=== PATIENT | male | born 2000 | race Hispanic/Latino ===

== ENCOUNTER 2024-09-21 16:39 | Emergency (ER) | payer SELFPAY ==
[~2024-09-21] VITALS: Ht 172.7 cm; Wt 90.7 kg
[2024-09-21 17:08] LABS: BASOPHILS # (AUTO) 0.06 K/uL (0.00-0.20); BASOPHILS % (AUTO) 0.8 % (0.0-5.0); EOSINOPHILS # (AUTO) 0.03 K/uL (0.00-0.70); EOSINOPHILS % (AUTO) 0.4 % (0.0-8.0); HEMATOCRIT 43.8 % (42-54); IMMATURE GRANULOCYTE ABSOLUTE 0.15 K/uL (0-1); LYMPHOCYTES # (AUTO) 1.2 K/uL (1.0-4.8); LYMPHOCYTES % (AUTO) 15.6 % (21.0-51.0); MEAN CORPUSCULAR HEMOGLOBIN 28.9 pg (27.0-33.0); MEAN CORPUSCULAR VOLUME 84.9 fL (79-99); MONOCYTES # (AUTO) 0.5 K/uL (0.1-1.0); MONOCYTES % (AUTO) 6.3 % (3.0-13.0); NEUTROPHILS # (AUTO) 5.6 K/uL (1.8-7.7); NEUTROPHILS % (AUTO) 74.9 % (40.0-77.0); PLATELET COUNT (AUTO) 192 K/uL (130-400); RED BLOOD CELL COUNT(AUTO) 5.16 MIL/uL (4.50-6.20); RED CELL DISTRIBUTION WIDTH 12.6 % (11.0-15.5); WHITE BLOOD COUNT (AUTO) 7.4 K/uL (4.8-10.8)
--- NOTE | 2024-09-21 17:08 | ERN ---
ED Note History of Present Illness Stated Complaint: COUGH, N/V ONSET TODAY Chief Complaint: Cough Time Seen by MD: 16:40 Dictation: Patient is a 84-year-old male came to the ED with a chief complaint of cough , chills , fevers this morning. Patient denies nausea, vomiting, shortness of breath, chest pain, burning micturition. Patient has nonproductive cough, patient did not take any medication this morning for fevers Allergies: Coded Allergies: No Known Allergies (Unverified Allergy, Unknown, 09/21/24) Home Meds Active Scripts Amoxicillin/Potassium Clav (Amox Tr-K Clv 875-125 mg Tab) 875 Mg-125 Mg Tablet, 1 TAB PO BID for 8 Days, #16 TAB 0 Refills Prov:VIKASH LOVELACE MD 09/21/24 Loratadine (Loratadine) 10 Mg Tablet, 1 TAB PO DAILY for allergy symptoms, #10 TAB 0 Refills Prov:VIKASH LOVELACE MD 09/21/24 Fluticasone Propionate (Flonase Nasal [place]) 50 Mcg/Actuation [place], 50 MCG NASAL BID, #1 SPRAY Prov:VIKASH LOVELACE MD 09/21/24 Past Medical History Past Medical History: No Pertinent History Surgical History: None Review of System Dictation Constitutional-no weight loss or gain. Patient complains of fever and chills Eyes-no injury, pain, redness and discharge ENT-no injury, pain, swelling Cardiovascular no chest pain, palpitations, edema Respiratory no shortness of breath, wheezing. Patient has cough Abdomen/GI-no abdominal pain, diarrhea, constipation, vomiting, patient complains of nausea Back no injury and pain Genitourinary no injury, bleeding and discharge Musculoskeletal/extremities no injury, deformity Skin no rash, discoloration Neuro-no headache, weakness, numbness, tingling, seizures, tremors Psych-no suicidal ideation, homicidal ideation, hallucinations, depression, anxiety, memory loss Initial Vital Sign VS Vital Signs Date Time Temp Pulse Resp B/P (MAP) Pulse Ox O2 Delivery O2 Flow Rate FiO2 09/21/24 16:40 103.1 131 20 115/75 96 Room Air 0 09/21/24 16:49 21 Physical Exam Dictation General-patient is awake alert and oriented Head/neck-normocephalic, atraumatic Eyes-PERRL, EOMI, vision at baseline Neck-trachea midline, supple, no nuchal rigidity Cardiovascular-RRR, normal S1/S2, no MRG is, no JVD Respiratory-no distress, wheezing, rales, rhonchi Abdomen-no tenderness, guarding, soft, nondistended Skin warm, dry, normal turgor, no rash Musculoskeletal/extremities pulses equal, no cyanosis Neuro-COA X 4, GCS 15, strength 5/5, CN 2-12 intact Psych-normal behavior, mood and affect normal IVF Sepsis Management BMI >30kg/m2?: Yes IVF calculated by IBW?: Yes Results (Laboratory/Radiology) Laboratory/Radiology Laboratory Tests Test 09/21/24 15:50 09/21/24 16:58 09/21/24 17:05 Influenza Type A Antigen Negative For Type A Influenza Type B Antigen Negative For Type B SARS-CoV-2, RNA, NAAT NEGATIVE SARS CoV-2 Group A Streptococcus Rapid negative (NEGATIVE) White Blood Count 7.4 K/uL (4.8-10.8) Red Blood Count 5.16 MIL/uL (4.50-6.20) Hemoglobin 14.9 g/dL (14.0-18.0) Hematocrit 43.8 % (42-54) Mean Corpuscular Volume 84.9 fL (79-99) Mean Corpuscular Hemoglobin 28.9 pg (27.0-33.0) Mean Corpuscular Hemoglobin Concent 34.0 g/dL (32.0-36.0) Red Cell Distribution Width 12.6 % (11.0-15.5) Platelet Count 192 K/uL (130-400) Mean Platelet Volume 10.0 fL (7.5-10.5) Immature Granulocyte % (Auto) 2.0 % (0-1) H Neutrophils (%) (Auto) 74.9 % (40.0-77.0) Lymphocytes (%) (Auto) 15.6 % (21.0-51.0) L Monocytes (%) (Auto) 6.3 % (3.0-13.0) Eosinophils (%) (Auto) 0.4 % (0.0-8.0) Basophils (%) (Auto) 0.8 % (0.0-5.0) Neutrophils # (Auto) 5.6 K/uL (1.8-7.7) Lymphocytes # (Auto) 1.2 K/uL (1.0-4.8) Monocytes # (Auto) 0.5 K/uL (0.1-1.0) Eosinophils # (Auto) 0.03 K/uL (0.00-0.70) Basophils # (Auto) 0.06 K/uL (0.00-0.20) Absolute Immature Granulocyte (auto 0.15 K/uL (0-1) Nucleated Red Blood Cells 0.0 % (0.0-0.19) Sodium Level 135 mmol/L (136-145) L Potassium Level 3.6 mmol/L (3.5-5.1) Chloride Level 100 mmol/L (101-111) L Carbon Dioxide Level 26 mmol/L (21-32) Blood Urea Nitrogen 12 mg/dL (7-18) Creatinine 1.3 mg/dL (0.5-1.3) Glomerular Filtration Rate Calc 79 mL/min (>90) Random Glucose 110 mg/dL (70-105) H Lactic Acid Level 1.6 mmol/L (0.8-2.5) Total Calcium 8.3 mg/dL (8.5-10.1) L Total Creatine Kinase 196 U/L (21-232) Troponin I High Sensitivity < 4 ng/L (4-75) L Procalcitonin 0.25 ng/mL (0.05-0.5) Urine Color YELLOW (YELLOW) Urine Appearance CLOUDY (CLEAR) H Urine pH 6.0 (5.0-8.0) Urine Specific Home 1.025 (1.001-1.031) Urine Protein 100 mg/dL (NEGATIVE) H Urine Glucose (UA) NEGATIVE mg/dL (NEGATIVE) Urine Ketones NEGATIVE mg/dL (NEGATIVE) Urine Occult Blood NEGATIVE (NEGATIVE) Urine Nitrate NEGATIVE (NEGATIVE) Urine Bilirubin NEGATIVE mg/dL (NEGATIVE) Urine Urobilinogen 4.0 mg/dL (0.2-1.0) H Urine Leukocyte Esterase NEGATIVE Stefanie/uL Urine RBC 2-5 /HPF (0-1) H Urine WBC 2-5 /HPF (0-1) H Urine Squamous Epithelial Cells RARE /HPF (0-2) Urine Bacteria RARE /HPF (None Seen) Urine Yeast RARE /HPF (None Seen) ED Course ED Course Orders Procedure Category Date Status Time Covid Rna Naat LAB 09/21/24 Complete 16:45 Rapid (Group A Strep) LAB 09/21/24 Complete 16:45 Influenza Type A & B, LAB 09/21/24 Complete Rapid 16:45 Cbc With Differential LAB 09/21/24 Complete 16:46 Basic Metabolic Panel LAB 09/21/24 Complete 16:46 Blood Cult YOLANDA 09/21/24 In Process 16:49 Urinalysis Profile LAB 09/21/24 Complete 16:49 Culture Urine YOLANDA 09/21/24 In Process 16:49 0.9%Nacl 1000ml (Ns PHA 09/21/24 In Process 1000ml) 17:00 Creatine Kinase, Total LAB 09/21/24 Complete 16:49 Troponin I High LAB 09/21/24 Complete Sensitivity 16:49 Procalcitonin LAB 09/21/24 Complete 16:49 Lactic Acid LAB 09/21/24 Complete 16:49 Ceftriaxone 1g Vial PHA 09/21/24 Complete (Rocephine 1g Inj) 17:00 Acetaminophen 500mg PHA 09/21/24 Complete Tab (Tylenol 500mg T 17:00 Ondansetron 4mg Inj PHA 09/21/24 Complete (Zofran 4mg Inj) 17:30 Current Medications Medications (Trade) Dose Ordered Sig/Dora Route PRN Reason Start Time Stop Time Status Last Admin Dose Admin Acetaminophen (TYLenol 500MG TAB) 1,000 mg ONCE ONCE PO 09/21/24 17:00 09/21/24 17:01 DC 09/21/24 17:16 Ceftriaxone Sodium (ROCEphine 1G INJ) 1 gm ONCE ONCE IVPB 09/21/24 17:00 09/21/24 17:01 DC 09/21/24 17:15 Ondansetron HCl (zoFRAN 4MG INJ) 4 mg ONCE ONCE IVP 09/21/24 17:30 09/21/24 17:31 DC 09/21/24 17:29 Sodium Chloride 2,721 ml @ 907 mls/hr ONCE ONCE IV 09/21/24 17:00 09/21/24 19:59 09/21/24 17:15 Vital Signs Date Time Temp Pulse Resp B/P (MAP) Pulse Ox O2 Delivery O2 Flow Rate FiO2 09/21/24 18:22 100.0 96 16 116/68 100 Room Air* 0 21 09/21/24 17:57 101.1 98 16 118/70 98 Room Air* 0 21 09/21/24 17:16 103.1 09/21/24 16:49 103.1 130 20 115/72 98 Room Air* 0 21 09/21/24 16:40 103.1 131 20 115/75 96 Room Air 0 Medical Decision Making MDM INITIAL IMPRESSION Initial history and physical concerning for upper respiratory viral infection, viral sinusitis I have reviewed the triage nursing notes and vital signs. Initial plan: Laboratory evaluation . DATA REVIEW I have reviewed additional NN, repeat VS, and monitoring where indicated. Heart rate, temperature are elevated ED COURSE Interventions: Medication and labs Reassessment: Patient got better, vital signs stabilized DISPOSITION Final diagnostic impression: Acute viral sinusitis I discussed my findings, clinical impression and treatment recommendations with the patient. I have reviewed the social factors contributing to the patient's presentation and disposition planning. My final plan for disposition was made based upon -mild risk of complications and potential morbidity of the patient's condition. -Discussion with the patient regarding management options. Patient will be discharged with symptomatic treatment and prophylactic antibiotic treatment DX & DISP Disposition: Discharge Departure Impression: Primary Impression: Acute viral sinusitis Condition: Stable Scripts Amoxicillin/Potassium Clav (Amox Tr-K Clv 875-125 mg Tab) 875 Mg-125 Mg Tablet 1 TAB PO BID for 8 Days, #16 TAB 0 Refills Prov: VIKASH LOVELACE MD 09/21/24 Loratadine (Loratadine) 10 Mg Tablet 1 TAB PO DAILY for allergy symptoms, #10 TAB 0 Refills Prov: VIKASH LOVELACE MD 09/21/24 Fluticasone Propionate (Flonase Nasal [place]) 50 Mcg/Actuation [place] 50 MCG NASAL BID, #1 SPRAY Prov: VIKASH LOVELACE MD 09/21/24 Additional Instructions: Come back to the ER if you have any acute or emergency symptoms To prevent dehydration, drink plenty of fluids. Choose water and other clear liquids until you feel better. Get plenty of rest. Use saline (saltwater) nasal washes to help keep your nasal passages open and wash out mucus and allergens. Use a vaporizer or humidifier to add moisture to your bedroom. Follow the instructions for cleaning the machine. Take medications as prescribed Referrals: SILVANA CAROLINA MD (PCP) Time of Disposition: 18:43 I have reviewed I have reviewed the case I WAS PRESENT AND PARTICIPATED IN THE CARE OF THIS PATIENT ALONGSIDE WITH THE RESIDENT PHYSICIAN. I HAVE REVIEWED AND PERSONALLY MADE AND APPROVED THE MANAGEMENT PLAN THAT IS DOCUMENTED IN THE NOTE BY MYSELF WITH THE RESIDENT PHYSICIAN. I ACKNOWLEDGED FOR RESPONSIBILITY FOR THE PATIENT'S MANAGEMENT PLAN. I have examined patient VIKASH LOVELACE MD Sep 21, 2024 17:07 JUN IRWIN MD Sep 21, 2024 18:50
[2024-09-21 17:13] LABS: RAPID GROUP A STREP negative (NEGATIVE)
[2024-09-21 17:15] LABS: SARS-CoV-2, RNA, NAAT NEGATIVE SARS CoV-2 (NEGATIVE)
[2024-09-21] MEDS: 0.9%NACL 1000ML 2,721 ML IV ONE (17:15)
[2024-09-21] MEDS: cefTRIAXone 1G VIAL IVPB ONE (17:15)
[2024-09-21 17:16] LABS: APPEARANCE,URINE CLOUDY (CLEAR); BILIRUBIN,URINE NEGATIVE (NEGATIVE); COLOR,URINE YELLOW (YELLOW); GLUCOSE, URINE (UA) NEGATIVE (NEGATIVE); KETONES,URINE NEGATIVE (NEGATIVE); LEUKOCYTE ESTERASE ,URINE NEGATIVE Leu/uL (NEGATIVE); NITRATE,URINE NEGATIVE (NEGATIVE); OCCULT BLOOD,URINE NEGATIVE (NEGATIVE); PROTEIN,URINE 100 mg/dL (NEGATIVE)
[2024-09-21] MEDS: acetaMINOPHEN 500 MG TABLET PO ONE (17:16)
[2024-09-21 17:21] LABS: ADD UA MICROSCOPIC YES
[2024-09-21 17:23] LABS: INFLUENZA TYPE A Negative For Type A (NEGATIVE); INFLUENZA TYPE B Negative For Type B (NEGATIVE)
[2024-09-21 17:23] LABS: BACTERIA,URINE RARE /HPF (None Seen); MUCUS,URINE FEW LPF (None Seen); SQUAMOUS EPITHELIAL CELL,UR RARE /HPF (0-2); YEAST,URINE BUDDING RARE /HPF (None Seen)
[2024-09-21 17:26] LABS: CREATININE 1.3 mg/dL (0.5-1.3); POTASSIUM 3.6 mmol/L (3.5-5.1)
[2024-09-21] MEDS: ondanSETRON 4MG INJ IVP ONE (17:29)
[2024-09-21 18:08] VITALS: TEMP 101.2
[2024-09-21 18:22] VITALS: BP 116/68; PULSE 96; RESP 16; TEMP 100; O2SAT 100
[2024-09-21] MEDS ORDERED: FLUT16H NASAL (18:40)
[2024-09-21] MEDS ORDERED: LORA10TA7 PO (18:40)
[2024-09-21] MEDS ORDERED: AMOX1TAB16 PO (18:40)
== END 2024-09-21 18:57 | disposition home or self-care (01) ==
LOC: EDH 16:39
DX: J01.90 Acute sinusitis, unspecified (principal); B97.89 Other viral agents as the cause of diseases classified elsewhere; Z79.899 Other long term (current) drug therapy; Z20.822 Contact with and (suspected) exposure to COVID-19
CPT/HCPCS: 99284; 96374; 87635; 96375; 82550; 84484; 80048; 85025; 87040 ×2; 87086; 87880; 87804 ×2; 83605; 81001; 36415; 84145; J7030; J0696; J2405